=== PATIENT | female | born 2000 | race Caucasian/White ===

== ENCOUNTER 2022-12-31 22:19 | Emergency (ER) | payer BC ==
[2022-12-31] MEDS ORDERED: traZODone HCl 50 MG TAB ONE (23:07)
== END 2022-12-31 23:14 | disposition home or self-care (01) ==
LOC: CSHERS 22:19
DX: F41.9 Anxiety disorder, unspecified (principal); E03.9 Hypothyroidism, unspecified; Z79.899 Other long term (current) drug therapy
CPT/HCPCS: 99283